=== PATIENT | female | born 1965 | race African-American/Black ===

== ENCOUNTER → 2016-06-29 | Outpatient (CLI) | payer OTHER ==
[~2016-06-29] MED LIST: ACET-703 PO; ALBU1AER INH; ALBUAER3 INH; AMLO10 PO; AMLO5 PO; ASPI325T PO; ASPI81TA11 PO; BENZ100 PO; FLUT1SPR5 EACH NARE; IBUP400T20 PO; LORA-361 PO; LOSA50TA PO; PRED20 PO; PROT40TA PO; SLEE25TA PO; ZITH250T PO
[2016-06-29 14:02] LABS: AUTOMATED NEUTROPHIL # 6.8 TH/MM3 (1.8-7.7); BASOPHIL # 0.1 TH/MM3 (0-0.2); BASOPHIL % 0.7 % (0.0-2.0); EOSINOPHIL # 0.1 TH/MM3 (0-0.4); HEMATOCRIT 31.3 % (35.0-46.0); LYMPH % 20.4 % (9.0-44.0); LYMPHOCYTE # 1.9 TH/MM3 (1.0-4.8); MEAN CELL VOLUME 70.8 FL (80.0-100.0); MEAN CORPUSCULAR HEMOGLOBIN 22.5 PG (27.0-34.0); MEAN CORPUSCULAR HGB CONC 31.8 % (32.0-36.0); MONO % 4.2 % (0.0-8.0); NEUT % 73.7 % (16.0-70.0); PLATELET COUNT 324 TH/MM3 (150-450); RED BLOOD COUNT 4.41 MIL/MM3 (4.00-5.30); RED CELL DISTRIBUTION WIDTH 17.5 % (11.6-17.2); WHITE BLOOD COUNT 9.2 TH/MM3 (4.0-11.0)
[2016-06-29 14:03] LABS: HEMO FLAGS AUTO DIFF
[2016-06-29 14:13] LABS: BLOOD, URINE TRACE (NEG); GLUCOSE,URINE NEG (NEG); KETONE, URINE NEG (NEG); MUCUS URINE FEW /lpf (OCC); NITRITE,URINE NEG (NEG); PH, URINE 5.5 (5.0-8.5); SQUAMOUS EPITHELIAL CELL URINE <1 /hpf (0-5); URINE COLOR YELLOW (YELLW/STRAW)
[2016-06-29 14:15] LABS: COMMENT (UR) CULT NOT INDICATED; CULTURE IF INDICATED CULT NOT INDICATED
[2016-06-29 14:42] LABS: PLATELET ESTIMATE SMEAR NORMAL (NORMAL); PLATELET MORPHOLOGY NORMAL (NORMAL); SCAN/DIFF AUTO DIFF CONFIRMED
--- NOTE | 2016-06-30 10:23 | EKG ---
Date Performed: 06/29/2016 Time Performed: 13:34:10 PTAGE: 51 years EKG: Sinus rhythm WITH OCCASIONAL VENTRICULAR PREMATURE COMPLEXES POSSIBLE LEFT ATRIAL ENLARGEMENT POSSIBLE LEFT VENTR ICULAR HYPERTROPHY ABNORMAL ECG NO PREVIOUS TRACING DOCTOR: Zoltan Garcia Interpretating Date/Time 06/30/2016 10:19:47
--- NOTE | 2016-06-30 12:49 | MH ---
cc: CHRISTOPH CHURCHILL M.D. DATE OF ADMISSION 06/29/2016 ADMISSION DIAGNOSIS Menorrhagia, dysmenorrhea, and anemia with uterine fibroids. HISTORY OF PRESENT ILLNESS The patient is 51-year-old black female para 2-0-3-2 who has had increasing menstrual flow and menstrual pain over the last one year. Her Pap smear on 06/08/2016 was normal. A vaginal ultrasound obtained by her primary doctor on November 2015 showed enlarged uterus with multiple fibroids, largest being 4.4 cm. The right ovary could not be seen. Left ovary was normal. Fibroids encroaching on the endometrial cavity. The uterus measured about 13 cm x 8 cm. She is now admitted for surgical evaluation. She has had uveitis with decreased vision which is improving over the last few months. PAST SURGERIES 1. She had a for her second delivery. 2. She had a bilateral tubal interruption age 24. MEDICATIONS She will bring in her list. ALLERGIES NEOSPORIN AND CODEINE SERIOUS MEDICAL ILLNESS 1. Had a mild MO at age 37. 2. Had endoscopy/colonoscopy 2015. OBSTETRICAL HISTORY Vaginal 1987. 1989. SOCIAL HISTORY She works at [employer], . Alcohol occasional. Beer, cigarettes, she is cutting down to about three packs per week. FAMILY HISTORY Noncontributory PHYSICAL EXAM This is a well-nourished well-developed black female. VITAL SIGNS: Stable. HEENT: Exam is normal. CHEST: Clear. HEART: Regular rate. BREASTS: Symmetrical. ABDOMEN: Benign. PELVIC: Normal external genitalia and BUS. Vagina is normal, cervix is normal. Uterus enlarged about 14 weeks' size. ASSESSMENT As above. PLAN She is now admitted for a D&C, frozen section, laparoscopy, probable LASH BSO, possible ANDREW/BSO. While in the office, the stated procedures, risks, benefits and complications were explained and the patient would like to proceed. MD JEREMIAH Farrell/WANG /12:35 PM /12:43 PM
== END ==
LOC: CPRE 13:08
PROVIDERS: ATTEND Obstetrics & Gynecology
DX: Z01.810 Encounter for preprocedural cardiovascular examination (principal); Z01.812 Encounter for preprocedural laboratory examination; D25.9 Leiomyoma of uterus, unspecified; N92.0 Excessive and frequent menstruation with regular cycle; D50.0 Iron deficiency anemia secondary to blood loss (chronic); N94.6 Dysmenorrhea, unspecified; R94.31 Abnormal electrocardiogram [ECG] [EKG]
CPT/HCPCS: 36415; 81001; 84703; 85025; 86850; 86900; 86901; 93005

== ENCOUNTER 2016-07-01 11:33 | Observation (INO) | payer OTHER ==
[~2016-07-01] VITALS: Ht 165.1 cm; Wt 82.6 kg
[~2016-07-01 11:33] MED LIST changes: -ALBU1AER INH; -AMLO10 PO; -ASPI81TA11 PO; -PRED20 PO; -ZITH250T PO
[2016-07-01] MEDS ORDERED: BUPIVACAINE LIPOSOME PF 1.3% 20 ML VIAL ONE (11:37)
[2016-07-01] MEDS ORDERED: ONDANSETRON HCL 4 MG/2 ML VIAL IV PUSH ONE (12:00)
[2016-07-01] MEDS ORDERED: PROPOFOL 200 MG/20 ML AMP IV ONE (12:00)
[2016-07-01] MEDS ORDERED: METOPROLOL TARTRATE 25 MG TAB PO PRN (12:00)
[2016-07-01] MEDS ORDERED: INSULIN HUMAN REGULAR 1,000 UNITS/10 ML VIAL SQ PRN (12:00)
[2016-07-01] MEDS ORDERED: KETOROLAC TROMETHAMINE 60 MG/2 ML (IM) VIAL IM ONE (12:00)
[2016-07-01] MEDS ORDERED: NEOSTIGMINE 3 MG/3 ML SYR IV ONE (12:00)
[2016-07-01] MEDS ORDERED: SODIUM CHLORID 0.9% 500 ML IV SCH (12:00)
[2016-07-01] MEDS ORDERED: LACTATED RINGER'S 1000 ML IV SCH (12:00)
[2016-07-01] MEDS ORDERED: ACETAMINOPHEN 1000 MG/100 ML VIAL IV SCH (12:15)
[2016-07-01] MEDS ORDERED: ceFAZolin 2 GM PREMIX 50 ML IV SCH (12:15)
[2016-07-01] MEDS ORDERED: CHLORHEXIDINE GLUCONATE 2 % 1 PACK (2 CLOTHS) TOP SCH (12:15)
[2016-07-01] MEDS ORDERED: POVIDONE IODINE 5% (ANTISEPSIS KIT) 4 APPLICATIONS EACH NARE SCH (12:15)
[2016-07-01 12:23] VITALS: BP 137/86; PULSE 83; RESP 16; TEMP 98.7; O2SAT 100
[2016-07-01] MEDS ORDERED: MIDAZOLAM HCL 5 MG/5 ML VIAL ONE (14:04)
[2016-07-01] MEDS ORDERED: MIDAZOLAM HCL 2 MG/2 ML VIAL ONE (14:52)
[2016-07-01] MEDS ORDERED: ONDANSETRON ODT 4 MG TAB PO PRN (16:45)
[2016-07-01] MEDS ORDERED: PROMETHAZINE HCL 25 MG TAB PO PRN (16:45)
[2016-07-01] MEDS ORDERED: HYDROmorphone HCL PF 1 MG/ML VIAL IV PRN (16:45)
[2016-07-01] MEDS ORDERED: SODIUM CHLORIDE 0.9% FLUSH 5 ML FLUSH FLUSH PRN (16:45)
[2016-07-01] MEDS ORDERED: ZOLPIDEM TARTRATE 5 MG TAB PO PRN (16:45)
[2016-07-01] MEDS: D5-1/2 NS + KCL 20 MEQ INJ 1,000 ML IV SCH (17:20)
[2016-07-01] MEDS ORDERED: *morphine SULFATE 8 MG/ML PERIprocedure ONLY ONE ×2 (17:21→18:14)
[2016-07-01] MEDS: KETOROLAC TROMETHAMINE 30 MG/ML (IVP) VIAL IVP SCH ×2 (17:34→22:18)
[2016-07-01] MEDS ORDERED: DO NOT ADM ANY ANTICOAGULANT DRUGS XX PRN (17:45)
[2016-07-01] MEDS ORDERED: ALBUTEROL SULFATE 90 MCG/ACT HFA 8 GM INHALER INH PRN (17:45)
[2016-07-01] MEDS: DOCUSATE SODIUM 100 MG CAP PO SCH (18:00)
[2016-07-01 19:26] LABS: HEMATOCRIT 28.8 % (35.0-46.0)
[2016-07-01 19:27] LABS: REVIEW FLAG FINAL
[2016-07-01] MEDS: ACETAMINOPHEN 1000 MG/100 ML VIAL IV SCH (20:08)
[2016-07-01] MEDS: ONDANSETRON HCL 4 MG/2 ML VIAL IV PRN (20:08)
[2016-07-01] MEDS: SODIUM CHLORIDE 0.9% FLUSH 5 ML FLUSH FLUSH SCH (20:09)
[2016-07-01 20:40] VITALS: BP 154/85; PULSE 74; RESP 18; TEMP 97.5; O2SAT 98
[2016-07-02] VITALS (7 sets, daily range): BP systolic 157–192; BP diastolic 72–102; PULSE 68–95; RESP 16–18; TEMP 96.9–97.8; O2SAT 96–100
[2016-07-02] MEDS: D5-1/2 NS + KCL 20 MEQ INJ 1,000 ML IV SCH ×3 (02:49→17:00)
[2016-07-02] MEDS: KETOROLAC TROMETHAMINE 30 MG/ML (IVP) VIAL IVP SCH ×4 (05:08→23:50)
[2016-07-02] MEDS: ACETAMINOPHEN 1000 MG/100 ML VIAL IV SCH ×3 (05:10→20:00)
[2016-07-02] MEDS: DOCUSATE SODIUM 100 MG CAP PO SCH ×2 (05:10→17:06)
[2016-07-02 07:50] LABS: BASOPHIL # 0.1 TH/MM3 (0-0.2); BASOPHIL % 0.5 % (0.0-2.0); EOSINOPHIL # 0.1 TH/MM3 (0-0.4); EOSINOPHIL % 1.2 % (0.0-4.0); HEMATOCRIT 27.4 % (35.0-46.0); LYMPH % 20.5 % (9.0-44.0); LYMPHOCYTE # 1.9 TH/MM3 (1.0-4.8); MEAN CORPUSCULAR HEMOGLOBIN 22.9 PG (27.0-34.0); MEAN CORPUSCULAR HGB CONC 32.3 % (32.0-36.0); MONO % 3.9 % (0.0-8.0); NEUT % 73.9 % (16.0-70.0); PLATELET COUNT 262 TH/MM3 (150-450); RED BLOOD COUNT 3.85 MIL/MM3 (4.00-5.30); RED CELL DISTRIBUTION WIDTH 17.9 % (11.6-17.2); WHITE BLOOD COUNT 9.5 TH/MM3 (4.0-11.0)
[2016-07-02 07:53] LABS: HEMO FLAGS AUTO DIFF
[2016-07-02 08:09] LABS: BICARBONATE 26.3 MEQ/L (21.0-32.0); POTASSIUM 3.6 MEQ/L (3.5-5.1)
[2016-07-02 08:31] LABS: OVALOCYTES 1+ (NORMAL); PLATELET ESTIMATE SMEAR NORMAL (NORMAL); PLATELET MORPHOLOGY NORMAL (NORMAL); SCAN/DIFF AUTO DIFF CONFIRMED
[2016-07-02] MEDS: SODIUM CHLORIDE 0.9% FLUSH 5 ML FLUSH FLUSH SCH ×2 (09:00→20:01)
[2016-07-02] MEDS ORDERED: FLUTICASONE PROPIONATE 50 MCG/ACT 16 GM NASAL SPRAY NASAL SCH (09:00)
[2016-07-02] MEDS: LORATADINE 10 MG TAB PO SCH (09:13)
--- NOTE | 2016-07-02 17:14 | PD.CONS ---
HPI Service [facility] Hospitalists Consult Requested By Dr. Jonathan Ramos. Reason for Consult Hypertension Primary Care Physician Abdulaziz Mora MD Diagnoses: (1) Hypertension (2) Tobacco abuse (3) Uterine fibroid History of Present Illness Ms. Carrillo is a very pleasant 51 year old female with a history of hypertension who underwent hysterectomy on 07/02/2016. Hospitalist service was consulted due to high blood pressure. Her blood pressure at home has been uncontrolled as well. She reports her baseline blood pressure is around 160/100s. She denies any chest pain, shortness of breath, fever, chills. Review of Systems ROS Limitations: Other (Negative except as noted in the HPI. ) Past Family Social History Allergies: Coded Allergies: Neosporin (Verified Allergy, Unknown, 07/01/16) Past Medical History Hypertension Probable COPD stable. Allergies Uterine fibroid. Diverticulitis Uveitis. Past Surgical History C-sections Appendectomy 27 years ago Hysterectomy 07/02/2016 Reported Medications Loratadine Tylenol Losartan 50mg Qday Amlodipine 5mg Qday Benzonatate 100mg TID Doxylamine succinate for sleep Albuterol INH Fluticasone Nasal spray Aspirin 325mg Qday Ibuprofen 400mg BID PRN Protonix 40mg Qday Family History Both parents had Diabetes mellitus. Dad with hypertension. Mom with thyroid disease. Social History Smokes 3 packs per week and drinks 1-2 beer a day. Denies using illicit drugs. Physical Exam Vital Signs Vital Signs Date Time Temp Pulse Resp B/P Pulse Ox O2 Delivery O2 Flow Rate FiO2 07/02/16 16:00 97.2 81 16 178/102 100 07/02/16 12:00 97.0 80 16 172/100 98 07/02/16 08:00 97.1 68 16 157/98 98 07/02/16 04:00 96.9 89 18 168/98 96 07/02/16 00:15 97.7 84 18 174/72 98 07/01/16 20:40 97.5 74 18 154/85 98 07/01/16 18:15 98.4 79 17 155/82 100 Room Air 07/01/16 17:45 65 17 155/82 100 Nasal Cannula 2 07/01/16 17:30 75 15 152/81 100 Nasal Cannula 3 07/01/16 17:15 86 15 153/78 100 Nasal Cannula 3 Physical Exam GENERAL: This is a well-nourished, well-developed patient, in no apparent distress. SKIN: No rashes, ecchymoses or lesions. Warm and dry. HEAD: Atraumatic. Normocephalic. No temporal or scalp tenderness. EYES: Pupils equal round and reactive. No injection or drainage. ENT: Nose without bleeding, purulent drainage or septal hematoma. Airway patent. NECK: Trachea midline. No lymphadenopathy. Supple, nontender, no meningeal signs. CARDIOVASCULAR: Regular rate and rhythm without murmurs, gallops, or rubs. No JVD. RESPIRATORY: Clear to auscultation. Breath sounds equal bilaterally. No wheezes , rales, or rhonchi. GASTROINTESTINAL: Abdomen soft, non-tender, nondistended. No guarding. MUSCULOSKELETAL: Extremities without clubbing, cyanosis, or edema. NEUROLOGICAL: Awake and alert. Cranial nerves II through XII intact. No focal neurological deficits. Normal speech. Laboratory Laboratory Tests Test 07/01/16 07/02/16 18:16 06:50 Hemoglobin 8.7 8.8 Hematocrit 28.8 27.4 White Blood Count 9.5 Red Blood Count 3.85 Mean Corpuscular Volume 71.0 Mean Corpuscular Hemoglobin 22.9 Mean Corpuscular Hemoglobin 32.3 Concent Red Cell Distribution Width 17.9 Platelet Count 262 Mean Platelet Volume 8.6 Neutrophils (%) (Auto) 73.9 Lymphocytes (%) (Auto) 20.5 Monocytes (%) (Auto) 3.9 Eosinophils (%) (Auto) 1.2 Basophils (%) (Auto) 0.5 Neutrophils # (Auto) 7.0 Lymphocytes # (Auto) 1.9 Monocytes # (Auto) 0.4 Eosinophils # (Auto) 0.1 Basophils # (Auto) 0.1 CBC Comment AUTO DIFF Differential Comment AUTO DIFF CONFIRMED Platelet Estimate NORMAL Platelet Morphology Comment NORMAL Ovalocytes 1+ Sodium Level 140 Potassium Level 3.6 Chloride Level 106 Carbon Dioxide Level 26.3 Anion Gap 8 Blood Urea Nitrogen 6 Creatinine 0.72 Estimat Glomerular Filtration 104 Rate Random Glucose 121 Calcium Level 8.6 Result Diagram: 07/02/16 0650 07/02/16 0650 Assessment and Plan Problem List: (1) Hypertension ICD Code: I10 Status: Acute (2) Tobacco abuse ICD Code: Z72.0 Status: Acute (3) Uterine fibroid ICD Code: D25.9 Status: Acute Assessment and Plan Ms. Carrillo, 51 underwent hysterectomy on 07/02/2016. Hospitalist service was consulted due to elevated blood pressure. - Uterine fibroid - s/p hysterectomy - Hypertension - Discussed at length regarding overall approach to control patient's blood pressure. - We discussed implication of persistent high blood pressure - including heart disease, stroke. - We discussed about lifestyle - need to reduce salt intake as well as quitting smoking and limiting alcohol use. - Discussed about importance of daily exercise - such as walking etc. - Patient is currently on Losartan 50mg Qday and Amlodipine 5mg Qday. We will increase Amlodipine to 10mg Qday. - Also, advised patient to limit use of Ibuprofen which she frequently use. Cutting down use of NSAIDs may improve her BP. - Monitor BP at home. - After reducing Ibuprofen intake, if BP remains well controlled, reduction in BP medications would be reasonable. - While in the hospital, we will use hydralazine 25mg TID. I do not think we need to add this medication to her regimen on discharge. Will also add Vasotec, Clonidine for PRN use. - Tobacco abuse - Counselled patient extensively regarding importance of quitting smoking for her overall health atif cardiovascular. Full code. Ambulation. Discussed with RN. Anticipate discharge in the morning. Thank you for the consult. We will continue to follow this patient with you. Toan Sierra DO Jul 02, 2016 17:14
[2016-07-02] MEDS: hydrALAZINE HCL 25 MG TAB PO SCH ×2 (18:00→19:59)
[2016-07-02] MEDS: ONDANSETRON HCL 4 MG/2 ML VIAL IV PRN (23:50)
[2016-07-03] MEDS ORDERED: ENALAPRILAT 1.25 MG/ML VIAL IV PRN
[2016-07-03] MEDS ORDERED: cloNIDine HCL 0.1 MG TAB PO PRN
--- NOTE | 2016-07-03 00:12 | HHI.PR ---
Subjective Remarks Patient seen around 8:30 AM. Follow up for hypertension. Patient is currently doing well. Denies any chest pain, shortness of breath, fever or chills. Objective Vitals Vital Signs Date Time Temp Pulse Resp B/P Pulse Ox O2 Delivery O2 Flow Rate FiO2 07/02/16 20:00 97.8 95 18 192/82 100 07/02/16 17:38 99 21 07/02/16 16:00 97.2 81 16 178/102 100 07/02/16 12:00 97.0 80 16 172/100 98 07/02/16 08:00 97.1 68 16 157/98 98 07/02/16 04:00 96.9 89 18 168/98 96 07/02/16 00:15 97.7 84 18 174/72 98 I/O 07/02/16 07/02/16 07/02/16 07/03/16 07/03/16 07/03/16 07:00 15:00 23:00 07:00 15:00 23:00 Intake Total 960 ml 240 ml Output Total 1050 ml 800 ml Balance -1050 ml 160 ml 240 ml Intake Oral 960 ml 240 ml Output Urine Total 1050 ml 800 ml # Bowel Movements 0 Result Diagram: 07/02/16 0650 07/02/16 0650 Objective Remarks GENERAL: Alert, oriented 3, NAD. SKIN: Warm and dry. HEAD: Normocephalic. EYES: No scleral icterus. No injection or drainage. NECK: Supple, trachea midline. No JVD or lymphadenopathy. CARDIOVASCULAR: Regular rate and rhythm without murmurs, gallops, or rubs. RESPIRATORY: Breath sounds equal bilaterally. No accessory muscle use. GASTROINTESTINAL: Abdomen soft, non-tender, nondistended. MUSCULOSKELETAL: No cyanosis, or edema. BACK: Nontender without obvious deformity. No CVA tenderness. Procedures None A/P Problem List: (1) Hypertension ICD Code: I10 Status: Acute (2) Tobacco abuse ICD Code: Z72.0 Status: Acute (3) Uterine fibroid ICD Code: D25.9 Status: Acute Assessment and Plan Ms. Carrillo, Tiffany underwent hysterectomy on 07/02/2016. Hospitalist service was consulted due to elevated blood pressure. - Uterine fibroid - s/p hysterectomy - Hypertension - Patient is currently on Losartan 50mg Qday and Amlodipine 5mg Qday. We will increase Amlodipine to 10mg Qday. - Also, advised patient to limit use of Ibuprofen which she frequently use. Cutting down use of NSAIDs may improve her BP. - Monitor BP at home. - After reducing Ibuprofen intake, if BP remains well controlled, reduction in BP medications would be reasonable. - Also advised patient to reduce Aspirin from 325mg Qday to 81mg Qday. - Tobacco abuse - Counselled patient extensively regarding importance of quitting smoking for her overall health atif cardiovascular. Full code. Ambulation. Patient is being discharged home today. Toan Sierra DO Jul 03, 2016 12:12 am
[2016-07-03 00:39] VITALS: BP 161/87; PULSE 110; RESP 20; TEMP 101; O2SAT 97
[2016-07-03] MEDS: D5-1/2 NS + KCL 20 MEQ INJ 1,000 ML IV SCH (01:00)
[2016-07-03 04:00] VITALS: BP 140/75; PULSE 100; RESP 19; TEMP 99.4; O2SAT 97
[2016-07-03] MEDS: ACETAMINOPHEN 1000 MG/100 ML VIAL IV SCH (04:21)
[2016-07-03] MEDS: KETOROLAC TROMETHAMINE 30 MG/ML (IVP) VIAL IVP SCH (04:22)
[2016-07-03] MEDS: hydrALAZINE HCL 25 MG TAB PO SCH (04:22)
[2016-07-03] MEDS: DOCUSATE SODIUM 100 MG CAP PO SCH (04:23)
--- NOTE | 2016-07-03 06:50 | HHI.DCPOC ---
Discharge Care Plan Report Symptoms to Your Doctor -Temperate above 100.5 degrees -Redness, of incision or excessive or foul smelling drainage -Unusual pain or calf pain -Increased vaginal bleeding -Painful or difficulty urinating -Feelings of extreme sadness or anxiety after 2 weeks Goals to Promote Your Health * To prevent worsening of your condition and complications * To maintain your health at the optimal level Directions to Meet Your Goals Take your medications as prescribed Follow your dietary instruction Follow activity as directed Ensure plenty of rest for recovery Drink fluids for hydration Keep your appointments as scheduled Take your immunizations and boosters as scheduled If your symptoms worsen call your PCP, if no PCP go to Urgent Care Center or Emergency Room Smoking is Dangerous to Your Health. Avoid second hand smoke Call the 24-hour crisis hotline for domestic abuse at Jonathan Ramos MD Jul 03, 2016 06:50
[2016-07-03 08:00] VITALS: BP 149/86; PULSE 85; RESP 18; TEMP 98.6; O2SAT 99
[2016-07-03] MEDS ORDERED: ASPI81TA11 PO (08:33)
[2016-07-03] MEDS ORDERED: AMLO10 PO (08:33)
[2016-07-03] MEDS ORDERED: amLODIPine BESYLATE 5 MG TAB PO SCH (09:00)
[2016-07-03] MEDS ORDERED: LOSARTAN 50 MG TAB PO SCH (09:00)
[2016-07-03] MEDS: LORATADINE 10 MG TAB PO SCH (09:44)
--- NOTE | 2016-07-06 10:15 | MP ---
cc: CHRISTOPH CHURCHILL DATE OF SURGERY 07/01/16 PREOPERATIVE DIAGNOSIS Menorrhagia, dysmenorrhea and anemia secondary to multiple fibroids. POSTOPERATIVE DIAGNOSIS Menorrhagia, dysmenorrhea and anemia secondary to multiple fibroids. PROCEDURE D&C frozen section followed by BRIAN MENON. ANESTHESIA General ET SURGEON Randal Churchill MD [employer] Bryan Rashid. ESTIMATED BLOOD LOSS About 200 mL FLUIDS Two liters crystalloid. OBJECTIVE FINDINGS Following induction of adequate general endotracheal anesthesia, the patient was prepped and draped supine on the operating table in dorsal lithotomy position in usual sterile fashion with the bladder being drained via Tapia catheterization. Exam under anesthesia showed a 14 weeks' size uterus. A weighted speculum was placed in the posterior fornix of the vagina. The anterior lip of the cervix grasped with single tooth tenaculum. The cervix and uterus sounded to 10 cm. Cervix was then dilated to a #18 Hanks dilator. Endocervical curetting was obtained with small serrated curet for permanent study. Endometrium with small sharp curette for frozen section. Vaginal instruments removed. 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 The abdomen was opened through a 3 cm curving infraumbilical incision using a knife to cut down through the skin to the fascia. Fascia opened transversely. Peritoneum opened sharply. There were some omental adhesions inferior which were lysed under direct vision with the Bovie. GelPort was placed, laparoscope inserted. A five port was placed left lower quadrant. Airseal port right lower quadrant. Uterus was about 14 weeks' size. There were adhesions of the bladder flap anteriorly. The ovaries were small. There were some adnexal adhesions, tubes were with interruption. Cul-de-sacs were clear. Liver edge was normal. Working first on the left harmonic scalpel was used take the right utero-ovarian pedicle, right round ligament, right broad ligament, right-sided bladder flap and right uterine vessels. Same on the left side. Harmonic scalpel was now used to amputate the fundus from the cervix and was placed in the pouch and exteriorized. The specimen hand morcellated with a knife to allow removal intact in the bag. The right tube and ovary now taken with the Harmonic scalpel and extracted through the GelPort same the left. Irrigation performed. No bleeding was evident. There wais no bleeding with low pressure tests. Ureters showed good peristalsis. The operative sites was now coated with tissel. There was no bleeding. The GelPort was now removed. Peritoneum sutured with running 2-0 Vicryl. The fascia with a running locking stitch of 0 Vicryl corner to midline and tied, subcu with running 3-0 Vicryl. Skin with subcuticular 3-0 Monocryl. Scope was now reinserted through lower ports used to inspect GelPort site which was well closed. Pelvis was inspected, no bleeding. Scope was removed, gas allowed to escape and the small wounds closed 3-0 Monocryl. Dermabond applied. Counts correct and the patient was awaken and taken to recovery room in good position. MD JEREMIAH Farrell/ /10:18 PM /9:45 AM KAMRAN
--- NOTE | 2016-07-08 14:57 | MD ---
cc: CHRISTOPH CHURCHILL M.D. ADMISSION DATE: 07/01/2016 DISCHARGE DATE: 07/03/2016 ADMISSION DIAGNOSIS Menorrhagia, dysmenorrhea, anemia, uterine fibroids. DISCHARGE DIAGNOSIS Menorrhagia, dysmenorrhea, anemia, uterine fibroids. PROCEDURE D&C, frozen section followed by LYNSEY TORRES on 07/01/2016. HISTORY OF PRESENT ILLNESS The patient is a 51-year-old black female, para 2-0-3-2 with increasing menstrual pain, menstrual flow and anemia over the last 1 year. Her vaginal ultrasound showed multiple fibroids and she was admitted for surgical treatment. HOSPITAL COURSE On the day of admission she underwent a D&C, frozen section which returned benign, followed by a BRIAN MENON. Postop she did well with gradual amount of activity and medical adjustment for pain control and for blood pressure control. She was discharged home in excellent condition on 07/03/2016. She will take all routine meds at home and advised NPV, light activity, no driving, return to see me in 2 weeks. She was given a prescription for Percocet 5 one to two p.o. q. 4 hours for pain #60, Zofran ODT 8 mg p.o. q. 8 hours p.r.n. for nausea and vomiting #15 and Slow Fe one p.o. q. day #100. MD JEREMIAH Farrell/TLL /6:59 AM /2:43 PM KAMRAN
== END 2016-07-03 10:49 | disposition home or self-care (01) ==
LOC: HSDC 11:33 → HOCB 19:20
PROVIDERS: ADMIT Obstetrics & Gynecology; ATTEND Obstetrics & Gynecology
DX: D25.9 Leiomyoma of uterus, unspecified (principal); D64.9 Anemia, unspecified; I10 Essential (primary) hypertension; F17.200 Nicotine dependence, unspecified, uncomplicated; Z88.1 Allergy status to other antibiotic agents
CPT/HCPCS: 80048; 85014; 85018; 85025; 88305; 88307; 88331; 94150; C9290; G0378; J0131; J0690; J1885; J2250; J2270; J2405; J2710; J3010; J3480; J7120